=== PATIENT | female | born 2000 | race Caucasian/White ===

== ENCOUNTER 2022-05-15 18:28 | Observation (INO) | payer OTHER ==
[~2022-05-15] VITALS: Ht 175.3 cm; Wt 122.5 kg
[2022-05-15 19:12] LABS: RED BLOOD COUNT 4.23 M/UL (4.00-5.10)
[2022-05-15 19:33] LABS: BUN/CREATININE RATIO 16 (0-10)
[2022-05-16 04:49] LABS: HEMOGLOBIN 10.9 gm/dl (12.3-15.3); RED BLOOD COUNT 3.57 M/UL (4.00-5.10)
[2022-05-16 05:19] LABS: BUN/CREATININE RATIO 17 (0-10)
[2022-05-16] MEDS ORDERED: LAMOTRIGINE100 MG PO (11:46)
[2022-05-16] MEDS ORDERED: EFFEXOR XR37.5 MG PO (11:47)
[2022-05-17 06:47] LABS: HEMOGLOBIN 10.4 gm/dl (12.3-15.3); RED BLOOD COUNT 3.44 M/UL (4.00-5.10)
[2022-05-17 07:05] LABS: BUN/CREATININE RATIO 12 (0-10)
[2022-05-17 07:29] LABS: WHITE BLOOD COUNT 15.1 K/UL (4.5-11.0)
[2022-05-17] MEDS ORDERED: NICOTINE PATCH1 EAC2 TOP (09:36)
[2022-05-17] MEDS ORDERED: BENZONATATE100 MG PO ×2 (09:36→09:47)
[2022-05-17] MEDS ORDERED: LEVOFLOXACIN500 MG PO (09:36)
[2022-05-17] MEDS ORDERED: PROVENTIL HFA6.7 GM INH (09:40)
[2022-05-17] MEDS ORDERED: SYMBICORT 16010.2 GM INH (10:52)
== END 2022-05-17 12:51 | disposition home or self-care (01) ==
LOC: ER1 18:28 → CDU 23:48 → MED SURG 4 23:48
PROVIDERS: Family Medicine; Internal Medicine; ADMIT Internal Medicine Infectious Disease
DX: A41.9 Sepsis, unspecified organism (principal); J15.9 Unspecified bacterial pneumonia; Z20.822 Contact with and (suspected) exposure to COVID-19; R04.2 Hemoptysis; E28.2 Polycystic ovarian syndrome; D50.9 Iron deficiency anemia, unspecified; E87.6 Hypokalemia; F17.210 Nicotine dependence, cigarettes, uncomplicated; E66.9 Obesity, unspecified; Z68.41 Body mass index [BMI] 40.0-44.9, adult; Z79.899 Other long term (current) drug therapy
CPT/HCPCS: 0240U; 36415; 71045; 80048; 80053; 80307; 81001; 82550; 82553; 83605; 83690; 83735; 84100; 84484; 84703; 85025; 85379; 85610; 87040; 87070; 87205; 87278; 93005; 94640; 94664; 94667; 94668; 94760; 96365; 96375; 96376; 99285; G0378; J0456; J0696; J1885; J2405; J2920; Q9967

== ENCOUNTER 2022-07-04 21:24 | Emergency (ER) | payer OTHER ==
[~2022-07-04 21:24] MED LIST: BENZONATATE100 MG PO; EFFEXOR XR37.5 MG PO; LAMOTRIGINE100 MG PO; LEVOFLOXACIN500 MG PO; NICOTINE PATCH1 EAC2 TOP; PROVENTIL HFA6.7 GM INH; SYMBICORT 16010.2 GM INH
== END 2022-07-04 21:47 | disposition left against medical advice (07) ==
LOC: ER1 21:24
DX: R51.9 Headache, unspecified (principal); R11.2 Nausea with vomiting, unspecified; F17.200 Nicotine dependence, unspecified, uncomplicated
CPT/HCPCS: 99283